=== PATIENT | female | born 2000 | race Caucasian/White ===

== ENCOUNTER 2022-05-17 14:47 | Outpatient (CLI) | payer OTHER, SELFPAY ==
[2022-05-17 21:51] LABS: Chloride* 100 mmol/L (96-114); Potassium* 3.7 mmol/L (3.6-5.1); Sodium* 136 mmol/L (135-149)
[2022-05-17 21:54] LABS: Blood Urea Nitrogen* 13 mg/dL (5-24); Carbon Dioxide* 28 mmol/L (20-32); Creatinine* 0.7 mg/dL (0.5-1.5); Estimated Glomerular Filt Rate 127 ml/min; Glucose* 79 mg/dL (60-115)
[2022-05-17 21:55] LABS: Calcium* 9.8 mg/dL (8.4-10.6)
[2022-05-18 00:03] LABS: Chlamydia DNA Amplified* NOT DETECTED (No Detected); GC DNA Amplified* NOT DETECTED (No Detected)
== END 2022-05-17 14:48 | disposition home or self-care (01) ==
PROVIDERS: PCP Emergency Medicine; Visit Provider Family Medicine
DX: N76.0 Acute vaginitis (principal); Z79.899 Other long term (current) drug therapy; Z11.3 Encounter for screening for infections with a predominantly sexual mode of transmission
CPT/HCPCS: 80048; 87491; 87591

== ENCOUNTER 2022-06-13 11:10 | Outpatient (CLI) | payer OTHER, SELFPAY | END 2022-06-13 11:11 | disposition home or self-care (01) | LOC: FRMREF 06-15 10:12 | PROVIDERS: PCP Emergency Medicine; Visit Provider Family Medicine | DX: Z11.3 Encounter for screening for infections with a predominantly sexual mode of transmission (principal) | CPT/HCPCS: 87491; 87591 ==

== ENCOUNTER 2022-10-10 18:47 | Outpatient (CLI) | payer OTHER, SELFPAY | END 2022-10-10 18:48 | disposition home or self-care (01) | PROVIDERS: PCP Emergency Medicine; Visit Provider Nurse Practitioner Family | DX: M54.9 Dorsalgia, unspecified (principal); N39.0 Urinary tract infection, site not specified | CPT/HCPCS: 87086; 87186 ==

== ENCOUNTER 2022-11-08 11:59 | Outpatient (CLI) | payer OTHER, SELFPAY ==
[2022-11-08 23:50] LABS: Chlamydia DNA Amplified* NOT DETECTED (No Detected); GC DNA Amplified* NOT DETECTED (No Detected)
== END 2022-11-08 12:00 | disposition home or self-care (01) ==
PROVIDERS: PCP Emergency Medicine; Visit Provider Emergency Medicine
DX: N76.0 Acute vaginitis (principal)
CPT/HCPCS: 0353U

== ENCOUNTER 2023-05-23 11:27 | Outpatient (CLI) | payer OTHER, SELFPAY | END 2023-05-23 11:28 | disposition home or self-care (01) | PROVIDERS: PCP Emergency Medicine; Visit Provider Emergency Medicine | DX: L65.9 Nonscarring hair loss, unspecified (principal) | CPT/HCPCS: 82728; 84443 ==

== ENCOUNTER 2023-09-19 14:07 | Outpatient (CLI) | payer OTHER, SELFPAY | END 2023-09-19 14:08 | disposition home or self-care (01) | LOC: LKVREF 14:08 | PROVIDERS: PCP Emergency Medicine; Visit Provider Emergency Medicine | DX: E61.1 Iron deficiency (principal) | CPT/HCPCS: 82728 ==

== ENCOUNTER 2024-09-04 11:29 | Outpatient (CLI) | payer OTHER, SELFPAY ==
[2024-09-05 00:16] LABS: Chlamydia DNA Amplified* NOT DETECTED (No Detected); GC DNA Amplified* NOT DETECTED (No Detected)
== END 2024-09-04 11:30 | disposition home or self-care (01) ==
PROVIDERS: PCP Emergency Medicine; Visit Provider Registered Nurse
DX: N89.8 Other specified noninflammatory disorders of vagina (principal); Z11.3 Encounter for screening for infections with a predominantly sexual mode of transmission; Z11.59 Encounter for screening for other viral diseases; Z11.4 Encounter for screening for human immunodeficiency virus [HIV]
CPT/HCPCS: 81513; 86592; 86703; 86803; 87340; 87481; 87491; 87591; 87661

== ENCOUNTER 2024-10-02 11:02 | Outpatient (CLI) | payer OTHER, SELFPAY ==
[2024-10-02 15:40] LABS: Bacterial Vaginosis* POSITIVE (Negative); Candida glab/krus NOT DETECTED (No Detected); Candida species NOT DETECTED (No Detected); Trichomonas vaginalis NOT DETECTED (No Detected)
== END 2024-10-02 11:03 | disposition home or self-care (01) ==
LOC: FRMREF 11:04
PROVIDERS: PCP Emergency Medicine; Visit Provider Registered Nurse
DX: N89.8 Other specified noninflammatory disorders of vagina (principal)
CPT/HCPCS: 81513; 87481; 87661